=== PATIENT | female | born 1970 | race Caucasian/White ===

== ENCOUNTER 2017-02-16 03:46 | Emergency (ER) | payer MEDICAID ==
[2017-02-16 03:56] VITALS: BP 114/79
[2017-02-16] MEDS ORDERED: KETOROLAC 30 MG/1 ML SDV IVP ONE (04:16)
[2017-02-16] MEDS ORDERED: DEXAMETHASONE 10 MG/ML VIAL IVP ONE (04:16)
[2017-02-16] MEDS ORDERED: NS 1,000 ML IV ONE (04:16)
[2017-02-16] MEDS ORDERED: ONDANSETRON 4 MG/2 ML VIAL IVP ONE (04:16)
--- NOTE | 2017-02-16 04:19 | EDPHY ---
H & P Stated Complaint: migraine, nausea Time Seen by Provider: 02/16/17 04:03 HPI/ROS: HPI The patient presents with headache which began at approximately 10:00 p.m. tonight which was gradual in onset and began while watching a movie. It is bifrontal, aching in nature, severe, improved over the last 30 minutes. It is associated with nausea without any vomiting. She has had headaches before that have been similar, however this is more severe. She does not have any vomiting. She does have photophobia. A few months ago she had sinusitis. REVIEW OF SYSTEMS Constitutional: No fever, no chills. Eyes: No discharge. ENT: No sore throat. Cardiovascular: No chest pain, no palpitations. Respiratory: No cough, no shortness of breath. Gastrointestinal: No abdominal pain, no vomiting. Genitourinary: No hematuria. Musculoskeletal: No back pain. Skin: No rashes. Neurological: Positive for headache. PMHx: Hypothyroidism, history of migraine PHYSICAL General Appearance: Alert, no distress Eyes: Pupils equal and round no pallor or injection ENT, Mouth: Mucous membranes moist Respiratory: There are no retractions, lungs are clear to auscultation Cardiovascular: Regular rate and rhythm Gastrointestinal: Abdomen is soft and non-tender, no masses, bowel sounds normal Neurological: A&O, cranial nerves 2-12 intact, 5/5 strength in upper and lower extremities which is symmetric, normal finger to nose testing Skin: Warm and dry, no rashes Musculoskeletal: Neck is supple non tender Extremities: symmetrical, full range of motion Psychiatric: Patient is oriented X 3, there is no agitation Source: Patient Exam Limitations: No limitations - Personal History LMP (Females 10-55): 1-7 Days Ago Current Tetanus/Diphtheria Vaccine: Unsure - Medical/Surgical History Hx Asthma: No Hx Chronic Respiratory Disease: No Hx Diabetes: No Hx Cardiac Disease: No Hx Renal Disease: No Hx Cirrhosis: No Hx Alcoholism: No Hx HIV/AIDS: No Hx Splenectomy or Spleen Trauma: No Other PMH: PMHx: hypothyroidism, migraines. PSHx: denies - Social History Smoking Status: Never smoked Constitutional: Initial Vital Signs Temperature (C) 36.3 C 02/16/17 03:51 Heart Rate 85 02/16/17 03:51 Respiratory Rate 14 02/16/17 03:51 Blood Pressure 114/79 02/16/17 03:51 O2 Sat (%) 96 02/16/17 03:51 O2 Delivery Mode Room Air Allergies/Adverse Reactions: No Known Allergies Allergy (Unverified 02/16/17 03:51) Home Medications: Medication Instructions Recorded Levothyroxine 02/16/17 Medical Decision Making Differential Diagnosis: This is a 46-year-old female with history of migraine who presents with headache for the last several hours, which has been associated with nausea and has been severe. Differential diagnosis includes migraine, sinusitis, tension type headache. I doubt meningitis given no nuchal rigidity or fever. I doubt subarachnoid hemorrhage given slow onset of headache with no neurologic deficits. The patient was given IV fluids in the emergency room for migraine headache as well as antiemetics. She had complete resolution of her headache and felt well. Because she complained of bilateral flank pain, UA was sent and was unremarkable. I feel she likely is suffering from a migraine I have discussed this with her. She will be discharged from the emergency room in good condition. - Data Points Laboratory Results: 02/16/17 04:20 Urine Color PALE YELLOW Urine Appearance CLEAR Urine pH 6.0 (5.0-7.5) Ur Specific [place] 1.004 (1.002-1.030) Urine Protein NEGATIVE (NEGATIVE) Urine Ketones NEGATIVE (NEGATIVE) Urine Blood NEGATIVE (NEGATIVE) Urine Nitrate NEGATIVE (NEGATIVE) Urine Bilirubin NEGATIVE (NEGATIVE) Urine Urobilinogen NEGATIVE EU EU (0.2-1.0) Ur Leukocyte Esterase NEGATIVE (NEGATIVE) Urine RBC 1-3 /hpf /hpf (0-3) Urine WBC 3-5 /hpf H /hpf (0-3) Ur Epithelial Cells TRACE /lpf /lpf (NONE-1+) Urine Bacteria TRACE /hpf H /hpf (NONE SEEN) Urine Glucose NEGATIVE (NEGATIVE) Medications Given: Discontinued Medications Dexamethasone (Decadron Injection) 10 mg IVP EDNOW ONE Stop: 02/16/17 04:17 Last Admin: 02/16/17 04:36 Dose: 10 mg Sodium Chloride (Ns) 1,000 mls @ 0 mls/hr IV ONCE ONE PRN Reason: Wide Open Stop: 02/16/17 04:17 Last Admin: 02/16/17 04:20 Dose: 1,000 mls Ketorolac Tromethamine (Toradol) 15 mg IVP EDNOW ONE Stop: 02/16/17 04:17 Last Admin: 02/16/17 04:36 Dose: 15 mg Ondansetron HCl (Zofran) 4 mg IVP EDNOW ONE Stop: 02/16/17 04:17 Last Admin: 02/16/17 04:36 Dose: 4 mg Departure - Departure Disposition: Home, Routine, Self-Care Clinical Impression: Migraine Condition: Good Instructions: Migraine Headache (ED) Referrals: NONE *PRIMARY CARE P,. [Primary Care Provider] - As per Instructions
[2017-02-16 05:01] LABS: COLOR PALE YELLOW; LEUKOCYTE ESTERASE,URINE NEGATIVE (NEGATIVE); NITRITE,URINE NEGATIVE (NEGATIVE)
[2017-02-16 05:08] LABS: BACTERIA TRACE /hpf (NONE SEEN)
[2017-02-16 05:29] VITALS: PULSE 88; RESP 16; TEMP 97.9; O2SAT 97
== END 2017-02-16 05:29 | disposition home or self-care (01) ==
DX: G43.909 Migraine, unspecified, not intractable, without status migrainosus (principal)
CPT/HCPCS: 96374; J1885; J2405